=== PATIENT | female | born 2000 | race Caucasian/White ===

== ENCOUNTER 2023-10-03 17:14 | Emergency (ER) | payer OTHER, SELFPAY ==
--- NOTE | ~2023-10-03 | CT_ITS ---
EXAMINATION: CT ABDOMEN AND PELVIS WITH CONTRAST CLINICAL INFORMATION: Right lower quadrant pain. COMPARISON: None available. TECHNIQUE: Multidetector volumetric images were obtained from the superior aspect of the liver through the pubic symphysis following administration 85 mL of Omnipaque 350 intravenous contrast. Sagittal and coronal reformatted images were obtained on the technologist's workstation. Oral contrast: No This CT examination was performed using dose optimization techniques as appropriate, variously including the following: *Automated exposure control *Adjustment of mA and/or kV according to patient size (this includes techniques or standardized protocols for targeted exams where dose is matched to indication/reason for exam; i.e. extremities or head) *Use of iterative reconstruction technique DLP: 617 mGy-cm FINDINGS: LUNG BASES: There is a 2.5 x 1.6 cm simple fluid attenuating cyst in the right epicardial fat (3:6) favoring to represent a pericardial cyst. No focal consolidation or pleural effusion. Nonspecific small focus of fat stranding/soft tissue thickening in the lower anterior chest wall (3:11). LIVER, GALLBLADDER, AND BILIARY TREE: The liver is normal in size, shape, and attenuation. No focal hepatic lesion or biliary ductal dilatation is present. Cholecystectomy. PANCREAS: Unremarkable. SPLEEN: Unremarkable. ADRENAL GLANDS: Unremarkable. KIDNEYS AND URETERS: The kidneys are normal in size, shape, and attenuation. No hydronephrosis, hydroureter, or calculi seen. No perinephric stranding. BLADDER: Unremarkable. GASTROINTESTINAL TRACT: Nonspecific gastric distention with heterogeneous debris. The small bowel is nondilated. Normal appendix (3:57). Mild colonic diverticulosis without significant pericolonic fat stranding or free fluid. No evidence of bowel obstruction. Indeterminate partially calcified peritoneal nodule in the right upper quadrant with an adjacent 0.6 cm hazy nodule (3:39 and 3:40). ABDOMINAL WALL: No significant hernia is appreciated. LYMPH NODES: No lymphadenopathy. VASCULAR: Normal caliber abdominal aorta. PELVIC VISCERA: Unremarkable. OSSEOUS STRUCTURES: No acute or aggressive appearing osseous findings. CT/CT abdomen pelvis w IV con IMPRESSION: 1. Mild colonic diverticulosis but no evidence of acute diverticulitis. 2. Nonspecific gastric distention with heterogeneous debris, most likely related with postprandial state, correlate clinically. 3. Minimal soft tissue thickening/fat stranding in the right anterior chest wall that could represent a small contusion, correlate with physical examination. 4. Indeterminate partially calcified peritoneal nodule in the right upper quadrant, possibly sequela of an infectious/inflammatory or posttraumatic process, such as evolving fat necrosis. 5. Simple appearing right epicardial cyst.
[2023-10-03 17:18] VITALS: BP 111/73; PULSE 91; RESP 16; TEMP 36.5; O2SAT 98; BMI 32.9
--- NOTE | 2023-10-03 17:20 | ED.GENADULT ---
HPI - General Adult General Chief complaint: Abdominal Pain Stated complaint: ?APPEDEICITIS Time Seen by Provider: 10/03/23 20:18 Source: patient, family, RN notes reviewed and old records reviewed Mode of arrival: ambulatory Limitations: no limitations History of Present Illness HPI narrative: 23-year-old female presents for evaluation abdominal pain. Patient reports 1 week of intermittent right lower abdominal pain, currently has 7/10 pain. She reports intermittent nausea, diarrhea but denies vomiting. No blood in the urine Reports a history of cholecystectomy 2 months ago Also reports a he previous but no other abdominal surgeries Reports chills but no documented fevers No other complaints or concerns at this time Related Data Previous Rx's Medication Instructions Recorded ondansetron 4 mg disintegrating 4 mg PO Q8H PRN nausea and 10/03/23 tablet vomiting #20 tabs Allergies Allergy/AdvReac Type Severity Reaction Status Date / Time adhesive tape Allergy Rash Verified 10/03/23 17:17 nickel Allergy Rash Verified 10/03/23 17:17 Review of Systems Constitutional: Constitutional: Reports chills and Denies fever(s) ENT: Denies sore throat Cardiovascular: Cardiovascular: Denies chest pain and Denies dyspnea Respiratory: Respiratory: Denies cough and Denies dyspnea Gastrointestinal: Gastrointestinal: Reports abdominal pain, Reports constipation, Reports diarrhea, Reports nausea and Denies vomiting Musculoskeletal: Musculoskeletal: Denies back pain Integumentary/Breasts: Skin/Breast: Denies rash Physical Exam ED Vital Signs: Vital Signs - 24 hr 10/03/23 17:18 10/03/23 20:00 10/03/23 20:36 Temperature 97.7 F 98.5 F Pulse Rate 91 82 Respiratory Rate 16 16 Blood Pressure 111/73 117/68 Pulse Oximetry 98 97 Oxygen Delivery Method Room Air Room Air 10/03/23 21:21 10/04/23 00:00 Temperature 98.1 F Pulse Rate 80 98 Respiratory Rate 16 16 Blood Pressure 119/66 115/72 Pulse Oximetry 97 98 Oxygen Delivery Method Room Air Room Air BMI result Body Mass Index 32.9 Const General: healthy appearing, comfortable, no acute distress, alert and awake Nutritional Appearance: well nourished Orientation/consciousness: patient oriented x3 HENMT Head: Yes normocephalic and Yes atraumatic Eyes Eyelids: Yes eyelids normal Conjunctivae: conjunctivae normal Sclerae: sclerae normal Corneas: corneas normal Pupils: Equal, round and reactive pupils present EOM: EOMs intact bilaterally Neck Neck: Yes full ROM Resp Effort & Inspection: normal respiratory effort, able to speak in complete sentences and not labored Cardio Rate: regular rate Rhythm: regular rhythm GI Other: Patient has right lower quadrant tenderness, no rebound tenderness. Inspection: No distended Palpation (GI): Soft to palpation, not firm, Tenderness to palpation present (GI), Guarding due to palpation present (GI) in the RLQ and not rigid Skin General skin exam: elasticity normal Neuro General: patient oriented x3 Cranial nerves: Yes Equal, round and reactive pupils present and Yes Bilaterally intact EOM present Cognition (Neuro): normal cognition Extrem Other: Moving all extremities well without any obvious deformities Course Course Course Narrative: RME: 23 yold female presents to the ED for Right lower quadrant pain and daiarrhea for couple of days. Sent from urgent care for evaluatoin. labs ordered. Reevaluation(s) Reevaluation #1: Patient's workup was unremarkable, discussed the CT findings all incidental findings with the patient. She reports feeling better after treatment, will discharge her home with Lisa. 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 Time: 23:32 Medications Administered Discontinued Medications Generic Name Dose Route Start Last Admin Trade Name Judd PRN Reason Stop Dose Admin Sodium Chloride 1,000 mls @ 999 mls/hr 10/03/23 20:45 10/04/23 00:20 Ns IV 10/03/23 21:45 Infused .Q1H1M MONISHA Infusion Iohexol 100 ml 10/03/23 21:12 10/03/23 21:12 Iohexol 350 Mg/Ml 100 Ml Infus..Btl IV 10/03/23 21:13 85 ml ONCE ONE Administration Ketorolac Tromethamine 30 mg 10/03/23 20:45 10/03/23 21:19 Ketorolac Tromethamine 30 Mg/Ml Vial IVPUSH 10/03/23 20:46 30 mg ONCE ONE Administration Ondansetron HCl 4 mg 10/03/23 20:45 10/03/23 21:19 Ondansetron Hcl 4 Mg/2 Ml Vial IVPUSH 10/03/23 20:46 4 mg ONCE ONE Administration Medical Decision Making Medical Decision Making [facility] Narrative: 23-year-old female presents for evaluation of right lower quadrant pain intermittently over the last week. She has a history of cholecystectomy and . She is having constipation/diarrhea intermittently. Low suspicion for obstruction. She also has significant GI symptoms, so GI etiologies much more likely including acute appendicitis. Although I would expect the patient to have an elevated white count and possibly fever if she has had appendicitis open over the last week. Possible etiology also include ovarian cyst but less likely ovarian torsion. Differential Diagnosis Differential Diagnoses: The differential diagnosis associated with the presentation includes Acute appendicitis Constipation Colitis Diverticulitis Ovarian cyst Ovarian torsion less likely Lab Data [facility] Lab Attestation statement: I reviewed the patient's lab results. No leukocytosis. Very mild anemia with a normal hemoglobin hematocrit 36.0. No significant electrolyte abnormalities. The patient's chloride is just above normal at 111. Sodium potassium within normal limits. Normal renal function. The patient is not , UA is clear 10/03/23 18:20 10/03/23 18:20 Labs: Lab Results 10/03/23 10/03/23 Range/Units 18:20 18:21 WBC 9.0 (4.8-10.8) X10*3/uL RBC 3.90 L (4.20-5.50) X10*6/uL Hgb 12.0 (12.0-16.0) g/dl Hct 36.0 L (37.0-47.0) % MCV 92.3 (80.0-98.0) fL MCH 30.8 (27.0-33.0) pg MCHC 33.3 (31.0-35.0) g/dl RDW 12.9 (11.0-16.0) % Plt Count 269 (160-400) X10*3/uL MPV 10.2 (9.4-12.3) fL Immature Gran % (Auto) 0.2 (0.0-0.4) % Neut % (Auto) 67.5 (45-73) % Lymph % (Auto) 24.1 (20-40) % Creek % (Auto) 5.9 (2-11) % Eos % (Auto) 1.9 (0-4) % Baso % (Auto) 0.4 (0-2) % Lymph # (Auto) 2.2 (1.2-4.9) X10*3/uL [place] # (Auto) 0.5 (0.1-1.2) X10*3/uL Eos # (Auto) 0.2 (0.0-0.4) X10*3/uL Baso # (Auto) 0.0 (0.0-0.2) X10*3/uL Abs Immat Gran (auto) 0.02 (0.00-0.03) X10*3/uL Absolute Neuts (auto) 6.1 (2.0-8.3) x10*3/uL Absolute Nucleated RBC 0.000 (0.0-0.012) X10*3/uL Nucleated RBC % (auto) 0.0 (0.0-0.2) /100WBC PT 10.6 L (11.1-13.3) SEC INR 0.9 (0.9-1.1) APTT 32.5 (26.0-36.4) SEC Sodium 141 (135-145) mmol/L Potassium 4.4 (3.3-5.1) mmol/L Chloride 111 H (96-108) mmol/L Carbon Dioxide 21 L (22-29) mmol/L Anion Gap 13 (12-20) BUN 9 (9-16) mg/dL Creatinine 0.66 (0.5-1.4) mg/dL Estim Creat Clear Calc 127.2 Estimated GFR > 60 Random Glucose 94 (60-115) mg/dL Calcium 8.9 (8.4-10.2) mg/dL Total Bilirubin 0.2 (0.0-1.0) mg/dL AST 26 (5-31) U/L ALT 15 (0-31) U/L Alkaline Phosphatase 75 (39-117) U/L Total Protein 7.2 (6.5-8.0) g/dL Albumin 3.7 (3.5-5.0) g/dL Lipase 11 (8-78) U/L Beta HCG, Quant < 2 mIU/mL Urine Color Yellow Urine Appearance Clear Urine pH 6.5 (5.0-9.0) Ur Specific [place] 1.025 (1.005-1.025) Urine Protein Negative (Neg-Trace) mg/dL Urine Glucose (UA) Negative (Negative) mg/dL Urine Ketones Negative (Negative) mg/dL Urine Blood Negative (Negative) Urine Nitrite Negative (Negative) Ur Leukocyte Esterase Negative (Negative) Urine Test NEGATIVE (NEGATIVE) Influenza Type A (PCR) NEGATIVE (Negative) Influenza Type B (PCR) NEGATIVE (Negative) RSV RNA Qual (PCR) POSITIVE A (Negative) SARS-CoV-2 RNA (RT-PCR) NEGATIVE (Negative) Discharge Plan Discharge Clinical Impression: Abdominal pain, RSV infection Patient Disposition: Home, Self-Care Instructions: Abdominal Pain (ED) Additional Instructions: You may use ibuprofen/Tylenol as needed for pain. Use Zofran as needed for nausea/vomiting. Drink lots of fluids Follow-up with your primary doctor as well as her OBGYN Return for new or worsening symptoms Prescriptions: New ondansetron 4 mg tablet,disintegrating 4 mg PO Q8H PRN (Reason: nausea and vomiting) Qty: 20 0RF Interventions: ED Discharge Assessment Last Done: 10/04/23 00:22 Discharge Date/Time: 10/04/23 00:25
[2023-10-03 18:28] LABS: MANUAL DIFF FLAG NO
[2023-10-03 18:31] LABS: Appearance Urine Clear; Color Urine Yellow; Glucose Urine UA Negative (Negative); Leukocyte Esterase Urine Negative (Negative); Nitrite Urine Negative (Negative); PH 6.5 (5.0-9.0); Specific Gravity - Urine 1.025 (1.005-1.025); Urine Blood Negative (Negative); Urine Ketones Negative (Negative); Urine Protein Negative (Neg-Trace)
[2023-10-03 18:32] LABS: UPreg QC Valid YES; Urine Pregnancy NEGATIVE (NEGATIVE)
[2023-10-03 18:36] LABS: INTERNATIONAL NORM RATIO 0.9 (0.9-1.1); Prothrombin Time 10.6 SEC (11.1-13.3)
[2023-10-03 18:39] LABS: Partial Thromboplastin Time 32.5 SEC (26.0-36.4)
[2023-10-03 18:53] LABS: Alanine Aminotransferase 15 U/L (0-31); Albumin Level 3.7 g/dL (3.5-5.0); Alkaline Phosphatase 75 U/L (39-117); Anion Gap 13 (12-20); Aspartate Amino Transferase 26 U/L (5-31); Bilirubin Total 0.2 mg/dL (0.0-1.0); Blood Urea Nitrogen 9 mg/dL (9-16); Calcium 8.9 mg/dL (8.4-10.2); Carbon Dioxide 21 mmol/L (22-29); Chloride 111 mmol/L (96-108); Creatinine Clr Calc Pharmacy 127.2; Estimated Glomerular Filt Rate > 60; Glucose Random 94 mg/dL (60-115); HCG Quantitative < 2 mIU/mL; Lipase 11 U/L (8-78); Potassium 4.4 mmol/L (3.3-5.1); Sodium 141 mmol/L (135-145); Total Protein 7.2 g/dL (6.5-8.0)
[2023-10-03 18:55] LABS: Basophils Percent Auto 0.4 % (0-2); Eosinophils Absolute Auto 0.2 X10*3/uL (0.0-0.4); Eosinophils Percent Auto 1.9 % (0-4); Imm Gran Abs Auto 0.02 X10*3/uL (0.00-0.03); Imm Gran Pct Auto 0.2 % (0.0-0.4); Lymphocytes Absolute Auto 2.2 X10*3/uL (1.2-4.9); Lymphocytes Percent Auto 24.1 % (20-40); Mean Corpuscular HGB Conc 33.3 g/dl (31.0-35.0); Mean Corpuscular Hemoglobin 30.8 pg (27.0-33.0); Mean Corpuscular Volume 92.3 fL (80.0-98.0); Mean Platelet Volume 10.2 fL (9.4-12.3); Monocytes Absolute Auto 0.5 X10*3/uL (0.1-1.2); Monocytes Percent Auto 5.9 % (2-11); Neutrophils Absolute Auto 6.1 x10*3/uL (2.0-8.3); Neutrophils Percent Auto 67.5 % (45-73); Platelet Count 269 X10*3/uL (160-400); Red Cell Distribution Width 12.9 % (11.0-16.0)
[2023-10-03 19:04] LABS: Influenza A PCR NEGATIVE (Negative); Influenza B PCR NEGATIVE (Negative); Resp Syncy Virus RNA Qual PCR POSITIVE (Negative); SARS COV2 PCR INHOUSE NEGATIVE (Negative)
[2023-10-03 20:00] VITALS: BP 117/68; PULSE 82; RESP 16; O2SAT 97
[2023-10-03 20:36] VITALS: TEMP 36.9
[2023-10-03] MEDS: iohexoL 350 MG/ML 100 ML INFUS..BTL IV (21:12)
[2023-10-03] MEDS: Ketorolac Tromethamine 30 MG/ML VIAL IVPUSH (21:19)
[2023-10-03] MEDS: ondansetron HCL 4 MG/2 ML VIAL IVPUSH (21:19)
[2023-10-03] MEDS: 0.9 % Sodium Chloride 1,000 ML 999 ML IV (21:20)
[2023-10-03 21:21] VITALS: BP 119/66; PULSE 80; RESP 16; O2SAT 97
[2023-10-04] VITALS: BP 115/72; PULSE 98; RESP 16; TEMP 36.7; O2SAT 98
== END 2023-10-04 00:25 | disposition home or self-care (01) ==
PROVIDERS: Physician Assistant; Emergency Provider Internal Medicine
DX: J22 Unspecified acute lower respiratory infection (principal); R10.31 Right lower quadrant pain; R19.7 Diarrhea, unspecified; K59.00 Constipation, unspecified; Z20.822 Contact with and (suspected) exposure to COVID-19; Z20.828 Contact with and (suspected) exposure to other viral communicable diseases
CPT/HCPCS: 0241U; 36415; 74177; 80053; 81003; 81025; 83690; 84702; 85025; 85610; 85730; 96361; 96374; 96375; 99285; J1885; J2405; Q9967

== ENCOUNTER 2023-10-04 13:20 | Emergency (ER) | payer OTHER, SELFPAY ==
[2023-10-04 13:27] VITALS: BP 136/82; PULSE 84; O2SAT 96
--- NOTE | 2023-10-04 13:32 | ED_ITS ---
HPI - General Adult General Chief complaint: Abdominal Pain Stated complaint: ABD PAIN X1 WK PER EMS Source: patient Mode of arrival: ambulatory Limitations: no limitations History of Present Illness HPI narrative: Patient is a 23 year old assigned female at with no reported medical history presenting to the emergency department today with right lower quadrant abdominal pain. Patient states that she was just seen for this same pain and told it was a virus but she does not believe that as her pain is getting worse. Patient denies any dizziness, lightheadedness, vomiting, fever, chills, blurry vision, double vision, loss of vision, chest pain, difficulty breathing, shortness of breath, back pain, night sweats, pain with urination, increased urinary frequency, increased urinary urgency, blood in her urine or stool, syncope or a near syncopal episode, recent trauma or falls, bowel incontinence, bladder incontinence, bowel retention, bladder retention, or any other complaints at this time. Onset (ago): week(s) (1) Location: abdomen Radiation: non-radiation Severity: mild Severity scale (1-10): 4 Quality: aching Pain Consistency: constant Relieving factors: none Exacerbating factors: none Associated symptoms: nausea/vomiting Treatments prior to arrival: none Related Data Previous Rx's Medication Instructions Recorded ondansetron 4 mg disintegrating 4 mg PO Q8H PRN nausea and 10/03/23 tablet vomiting #20 tabs Allergies Allergy/AdvReac Type Severity Reaction Status Date / Time adhesive tape Allergy Rash Verified 10/03/23 17:17 nickel Allergy Rash Verified 10/03/23 17:17 Review of Systems Constitutional: Constitutional: Reports no additional constitutional complaints, Denies chills, Denies fever(s) and Denies night sweats Eyes: Eyes: Reports no additional eye complaints, Denies blurry vision, Denies change in vision, Denies diplopia, Denies eye discharge, Denies loss of vision and Denies eye pain ENT: Denies dizziness Cardiovascular: Cardiovascular: Reports no additional cardiovascular complaints, Denies chest pain, Denies lightheadedness, Denies Loss of Consciousness and Denies dyspnea Respiratory: Respiratory: Reports no additional respiratory complaints and Denies dyspnea Gastrointestinal: Gastrointestinal: Reports no additional gastrointestinal complaints, Reports abdominal pain, Denies melena, Denies hematochezia, Denies change in bowel habits, Denies change in stool character and Reports nausea Genitourinary: Genitourinary: Denies hematuria, Denies urinary frequency, Denies dysuria, Denies urinary incontinence, Denies urinary hesitancy and Denies urinary urgency Musculoskeletal: Musculoskeletal: Reports no additional musculoskeletal complaints, Denies numbness and Denies tingling Neurologic: Denies dizziness, Denies loss of vision, Denies numbness and Denies tingling Psychiatric: Psychiatric: Reports no additional psychiatric complaints Endocrine: Endocrine: Reports no additional endocrine complaints Hematologic/Lymphatic: Hematologic/Lymphatic: Reports no additional hematologic/lymphatic complaints Allergic/Immunologic: Allergic/Immunologic: Reports no additional allergic/immunologic complaints [facility] Past Medical History Attestation statement: The following information was validated with the patient. Source: old records reviewed and nursing notes reviewed Social History Social History Advance Directives: No Physical Exam ED Vital Signs: Vital Signs - 24 hr 10/04/23 13:33 Temperature 98.5 F Pulse Rate 81 Respiratory Rate 16 Blood Pressure 120/69 Pulse Oximetry 98 Oxygen Delivery Method Room Air BMI result Body Mass Index 34.0 Const General: cooperative, no acute distress, alert and awake Nutritional Appearance: well nourished Orientation/consciousness: patient oriented x3 Limitations: no limitations HENMT Head: Yes normal to inspection and Yes atraumatic Ears: hearing grossly normal bilaterally and external ears normal General nose exam: Normal external nose present, no nasal discharge noted and no epistaxis Face and sinus: Yes normal facial exam, No abrasion and No laceration Mouth: Normal oral and palatal mucosa present, no drooling and no muffled voice Eyes General: appearance normal, both eyes and all related structures Periorbital: periorbital findings normal Eyelids: Yes eyelids normal Conjunctivae: conjunctivae normal Pupils: Equal, round and reactive pupils present EOM: EOMs intact bilaterally Neck Neck: Yes normal visual inspection, Yes full ROM and Yes no lymphadenopathy Chest Chest palpation & inspection: normal inspection of the chest Resp Effort & Inspection: normal respiratory effort and able to speak in complete sentences GI Inspection: Yes normal to inspection Neuro General: patient oriented x3 and moves all extremities Cranial nerves: Yes Equal, round and reactive pupils present Cognition (Neuro): normal cognition Motor exam (neuro): 5/5 motor strength present throughout Sensory Exam: Normal double simultaneous stimulation for sensation Coordination: [id number] test normal Extrem General: Yes normal to inspection, Yes full ROM and Yes capillary refill normal Psych Appearance: grossly normal Mental Status: mental status grossly normal Affect: normal affect Attitude: cooperative Thought process: Normal thought process present Thought content: Normal thought content present Insight: Good insight present (Psych) Course Course Course Narrative: RME performed by Maru Peace PA-C. Patient is a 23 year old assigned female at presenting to the emergency department with persistent RLQ abdominal pain. Patient was seen here on 10/03/2023 and had labs, UA, and imaging done. Will repeat basic labs + UA. Labs ordered. Patient placed back in the waiting room pending room availability and results. Medical Decision Making Medical Decision Making MDM Narrative: Patient is a 23 year old assigned female at with no reported medical history presenting to the emergency department today with abdominal pain. Patient's limited physical exam performed in triage was unremarkable. Patient left before any blood work was obtained. Patient left the department without completing treatment. Patient left the department before myself or any of the other emergency department clinicians could review / explain physical exam findings, need or lack there of for additional testing or imaging, treatment options, or a treatment plan. Differential Diagnosis Differential Diagnoses: The differential diagnosis associated with the presentation includes Abdominal pain Admission/Observation Consideration of admission/observation: Escalation of care including admission/observation considered Patient left the department before need for admission could be determined. Discharge Plan Discharge Clinical Impression: Abdominal pain Patient Disposition: Left W/O Completing Treatment Prescriptions: No Action ondansetron 4 mg tablet,disintegrating 4 mg PO Q8H PRN (Reason: nausea and vomiting) Qty: 20 0RF Discharge Date/Time: 10/04/23 19:00
[2023-10-04 13:33] VITALS: BP 120/69; PULSE 81; RESP 16; TEMP 36.9; O2SAT 98; BMI 34.0
== END 2023-10-04 19:00 | disposition left against medical advice (07) ==
PROVIDERS: Emergency Provider Emergency Medicine
DX: R10.9 Unspecified abdominal pain (principal)
CPT/HCPCS: 99281

== ENCOUNTER → 2025-03-19 13:10 | Outpatient (BNVA) | payer OTHER, SELFPAY | PROVIDERS: Visit Provider Physician Assistant Surgical ==

== ENCOUNTER 2025-04-04 08:22 | Outpatient (AMB) | payer OTHER, SELFPAY ==
--- OUTSIDE RECORDS SUMMARY | 2025-04-04 08:27 | XMS_ITS | Clinical Summary ---
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 Name Role Phone Physician, No Pcp Primary Care Provider Unavaila ble Allergies Active Allergy Reactions Criticality Noted Date Comments Adhesive 03/04/2021 Other Reaction(s): Rash/Dermatitis Nickel Rash Low 02/10/2018 Other Reaction(s): Rash/Dermatitis Contact allergy to nickel - scaly rash Other 10/10/2021 Full Spectrum Extract Medications topiramate (TOPAMAX) 50 mg tablet TAKE 1 TABLET BY MOUTH TWICE A DAY FOR 30 DAYS 4 Active hyoscyamine (ANASPAZ,LEVSIN) 0.125 mg tablet TAKE 1 TABLET BY MOUTH FOUR TIMES A DAY NEEDED FOR SPASM 3 Active ibuprofen (ADVIL,MOTRIN) 800 mg tablet TAKE 1 TABLET EVERY 8 HOURS NEEDED FOR PAIN 4 Active desogestreL-ethinyl estradioL (APRI,ENSKYCE,EMOQU ETTE,ISIBLOOM,JULEB ER,KALLIGA) 0.15-0.03 mg per tablet Take 1 tablet by mouth 1 (one) time each day. 84 tablet 3 5 12/05/19 26 Active ondansetron ODT (ZOFRAN-ODT) 4 mg disintegrating tablet Let 1 tablet dissolve under the tongue three times daily as needed for nausea or vomiting. 30 tablet 5 Active Active Problems Problem Noted Date Diagnosed Date Class 2 obesity 12/06/2024 Anxiety attack 02/11/2021 Intractable vomiting 02/11/2021 Migraine without aura and wi thout status migrainosus, not intractable 06/07/2019 Disturbance in sleep behavior 03/29/2018 Overview (09/21/2024): 06/2019 Home Sleep Study did not reveal sleep apnea or nocturnal hypoxia. Migraine 03/21/2018 Overview (09/21/2024): 03/23/17 topiramate 100 mg @ HS and 50 mg QD. Sumatriptan 50 mg Irregular periods 02/10/2018 Overview (09/21/2024): 03/18: treated with micronor Constipation 08/15/2012 Overview (09/21/2024): Seen by Dr. Anne miralamisty 1/2 capful daily, wean to 1/4 capful after two days of loose stools Normal kub 07/15/12 03/24/18: seen at [facility] ER for severe constipation, given mag citrate Last Assessment & Plan: C/w miralax. F/u with Dr. Anne Lactose intolerance 07/15/2012 Overview (09/21/2024): Last Assessment & Plan: Controlled with lactaid pills Learning disabilities 12/18/2011 Overview (09/21/2024): Has iep Diagnosis unknown 05/22/2009 Overview (09/21/2024): BMI (body mass index), pediatric, 95-99% for age Elevated serum cholesterol 01/18/2009 Overview (09/21/2024): 10/12 cholesterol 173, triglycerides 124, hdl 37 low. LDL 111 high Encounters Date Type Department Care Team Description 02/12/2025 9:38 PM EDT - 02/13/2025 4:43 AM EDT Emergency [facility] [address] [place] [phone] Discharge Disposition: Home or Self Care 02/07/2025 5:22 AM EDT - 02/07/2025 9:12 AM EDT Emergency [facility] [address] [place] [address] Right flank pain (Primary Dx); Kidney stone Discharge Disposition: Home or Self Care from Last 3 Months Immunizations Name Administration Dates Next Due DTaP (Infanrix) 6wks to less than 7yo ,11/24/2002,2001,10/21,2001 [id number] (Pentacel) 2mo to less than 5yo 12/19/2012,08/22/2002,2001,10/21,2001 H1N1 Inj Preservative Free 01/07/2010,09/14/2009 HPV, Quadrivalent 11/23/2014,11/30/2013,12/19/19 13 Hepatitis B Pediatric (Enger ix B; Recombivax HB) to less than 20 yo 03/17/2002,2001,2001 IPV Inactivated polio (Ipol) 6wks and older 05/09/2005,05/29/2002,2001,08/17 Influenza Quadravalent, MDCK , 0.5ml, preservative free (Flucelvax) 6mo and older 01/04/2024,07/20/2018 Influenza trivalent, 0.5mL, preservative free (Fluarix; FluLaval; Fluzone) ages 6mo and older (Afluria) 3 years and older 08/09/2019,09/27/2017,08/19/2015,11/23,08/23/2013,11/22/2012,07/20/2011 ,07/25/2010,08/02/2009,09/03/2008,10/01,09/10/2006,09/13/2004, 4 MMR, measles mumps and rubel la Live (Priorix; M-M-R II) 12mo and older 05/19/2005,08/22/2002 Meningococcal MCV4P 03/29/2018,12/19/2012 Moderna SARS-CoV-2 COVID-19, mRNA, LNP-S, preservative free 03/24/2021,02/24/2021 Pneumococcal Conjugate Vacci ne, 7 Valent 06/11/2003,2001,2001,08/17 Tdap Tetanus diptheria acell ular pertussis (Boostrix; Adacel) 7yo and older 01/04/2024,12/19/2012 Varicella live (Varivax) 12m o and older 01/07/2010,05/19/2002 Surgical History Surgery Date Site/Laterality Comments TONSILLECTOMY 11/12/2011 PROCEDURE: HISTORICAL TONSILLECTOMY; COMMENT: Dr. Aguilar SECTION 05/05/2022 PROCEDURE: HISTORICAL DELIVERY CHOLECYSTECTOMY PROCEDURE: HISTORICAL CHOLECYSTECTOMY Medical History Medical History Date Comments Asthma DX:Asthma; COMME NT: as a baby, no sx since age 4 Seasonal allergies DX:Seasonal a llergies Eczema DX:Eczema Precocious puberty DX:Precocious puberty; COMMENT: sent to Endocrine BMI (body mass index), pedia tric, 95-99% for age 705/22/2009 DX:BMI (body mass index), pe diatric, 95-99% for age; COMMENT: Veronica Anguiano MD 08/15/[address] Anne's 1,2,3, power of Second Sight program 03/23/18 reviewed dietary modifications and activity, strategies for use at home -groceries, snacking, shaun; prep increased activity Constipation 08/15/2012 DX:Constipation; COMMENT: Seen by Dr. Anne miralax 1/2 capful daily, wean to 1/4 capful after two days of loose stools Normal kub 07/15/12 Elevated serum cholesterol 01/18/2009 DX:El evated serum cholesterol; COMMENT: 10/12 cholesterol 173, triglycerides 124, hdl 37 low. LDL 111 high Irregular periods 02/10/2018 DX:Irregular p eriods Lactose intolerance 07/15/2012 DX:Lactose i ntolerance Learning disabilities 12/18/2011 DX:Learnin g disabilities; COMMENT: Has IEP ; extra help in reading, math Migraine 03/21/2018 DX:Migraine; COM MENT: 03/23/17 topiramate 100 mg @ HS and 50 mg QD. Sumatriptan 50 mg Overactive bladder 07/31/2011 DX:Overactive bladder; COMMENT: Nl bladder ultrasound. Family no showed for appt with urology. Sx improved with ditropan History of febrile seizure DX:Hi story of febrile seizure; COMMENT: 4 in life, Every November. Not since age 5 GERD (gastroesophageal reflux disease) 03/23/2018 DX:GERD (gastroesophageal reflux disease); COMMENT: 07/13/[address] 20 mg Temporomandibular joint disorder (TMJ) 03/23/2018 DX:Temporomandibular joint disorder (TMJ); COMMENT: 09/27/17 - cyclobenzaprine 5 mg tab, 1-2 tabs Q PM PRN Kidney stone Family History Medical History Relation Name Comments Other: Kidney Disease Aunt 1 Maternal Other: brain aneursym Aunt 2 patern al aunt , age 21. Brain Aneurysm Father's side Diabetes Father's side paternal aunt Heart attack Maternal Grandfather Depression Mother Obesity Breast cancer Mother's side maternal great GM MGGM Eczema Mother's side maternal great GM cousin Obesity Mother's side maternal great GM Other: Anxiety Mother's side maternal great GM M Aunt Brain Aneurysm Other paternal aunt Heart attack Paternal Grandfather Diabete s, Sleep Apnea Brain Aneurysm Paternal Grandmother Other: Anxiety Paternal Grandmother Colon cancer Neg Hx Ovarian cancer Neg Hx Pancreatic cancer Neg Hx Uterine cancer Neg Hx Relation Name Status Comments Aunt 1 Maternal (Age 25) brain aneu rysm or AVM? (father's sister) Aunt 2 Alive Father Alive hypochondriac Father's side Maternal Grandfather Alive anxiety , DDD-back Maternal Grandmother Alive RSD Mother Alive healthy Mother's side maternal great GM Other paternal aunt kidney disease Paternal Grandfather Alive sleep a pnea Paternal Grandmother Alive healthy Social History Tobacco Use Types Packs/Day Years Used Date Smoking Tobacco: Never Smokeless Tobacco: Never Alcohol Use Standard Drinks/Week Comments Not Currently 0 (1 standard drink = 0.6 oz pur e alcohol) Comments No Sex and Gender Information Value Date Recorded Sex Assigned at Female 11/04/2024 7:45 PM EST Legal Sex Female 4:51 AM EST Gender Identity Female 11/04/2024 7:45 PM EST Sexual Orientation Straight 11/04/2024 7: 45 PM EST Obstetrics History Para Term AB IAB SAB Ectopic Multiple Livin g Live Births 1 1 1 1 1 Date Outcome GA Total Labor Labor/2nd/3rd Weight Sex Type Anes PTL Sherly A1 A5 Name Clin 022 Term 38w 0d 2466 g (87 oz) F Living Complications: distress affecting management of mother Delivery Location:[facility] Last Filed Vital Signs Vital Sign Reading Time Taken Comments Blood Pressure 134/86 02/12/2025 9:44 PM EDT Pulse 80 02/12/2025 9:44 PM EDT Temperature 36.7 ??C (98.1 ??F) 02/12/2025 9:44 PM ED T Respiratory Rate 18 02/12/2025 9:44 PM EDT Oxygen Saturation 97% 02/12/2025 9:44 PM EDT Inhaled Oxygen Concentration - - Weight 102 kg (225 lb) 02/12/2025 9:44 PM EDT Height 154.9 cm (5' 1 ) 02/12/2025 9:44 PM EDT Body Mass Index 42.51 02/12/2025 9:44 PM EDT Plan of Treatment Health Maintenance Due Date Last Done Comments Meningococcal B Vaccine (1 of 2 - Standard) 2017 Social Influencers of Health Screening 10/10/2022 COVID-19 Vaccine ( - season) 2024 03/24/2021, 02/24/2021 Influenza Vaccine (Season Ended) 2025 01/04/2024, 07/22/2023, 08/08/2021, Additional history exists Gonorrhea/Chlamydia Screening 08/18/2025 08/18/2024 Depression Screening 03/15/2026 03/15/2025, 03/03/20 Cervical Cancer Screening: Pap Smear 08/25/2026 08/25/2023, 08/25/2023 Cholesterol Screening (Lipid Panel) 01/31/2029 02/01/2024 DTaP,Tdap,and Td Vaccines (10 - Td or Tdap) 01/03/2034 01/04/2024, 05/07/2022, 12/19/2012, Additional history exists Hepatitis B Vaccines Completed 03/17/2002, 2001, 2001 Pneumococcal Vaccine: Pediatrics (0 to 5 Years) and At-Risk Patients (6 to 64 Years) Completed 06/11/2003, 2001, 2001, Additional history exists HIB Vaccines Completed 12/19/2012, 08/02, 08/22/2002, Additional history exists IPV Vaccines Completed 12/19/2012, 07/2005, 08/22/2002, Additional history exists HPV Vaccines Completed 11/23/2014, 11/03, 12/19/2012 Meningococcal ACWY Vaccine Completed 03/29/2018, Hepatitis C Screening Completed 04/03/2020 HIV Screening Completed 01/28/2021 MMR Vaccines Completed 05/07/2022, 05/01, 08/22/2002 Varicella Vaccines Completed 05/07/2022, 0 01/07/2010, 05/19/2002 Hepatitis A Vaccines Aged Out No long er eligible based on patient's age to complete this topic RSV Immunization Patients Under 20 months Aged Out No longer eligible based on patient's age to complete this topic Procedures Procedure Name Priority Date/Time Associated Diagnosis Comments NAVARRO URINE CULTURE TUBE STAT 02/12/2025 9:56 PM EDT URINALYSIS WITH REFLEX MICROSCOPIC AND CULTURE STAT 02/12/2025 9:56 PM EDT CBC WITH AUTO DIFFERENTIAL STAT 02/12/2025 9:56 PM EDT URINALYSIS WITH REFLEX MICROSCOPIC AND CULTURE STAT 02/12/2025 9:56 PM EDT COMPREHENSIVE METABOLIC PANEL STAT 02/12/2025 9:56 PM EDT CBC AND DIFFERENTIAL STAT 02/12/2025 9:56 PM EDT CULTURE URINE STAT 02/12/2025 9:[address] ABDOMEN PELVIS WO CONTRAST STAT 02/07/2025 6:33 AM EDT NAVARRO URINE CULTURE TUBE STAT 02/07/2025 5:20 AM EDT URINALYSIS WITH REFLEX MICROSCOPIC AND CULTURE STAT 02/07/2025 5:20 AM EDT URINALYSIS WITH REFLEX MICROSCOPIC AND CULTURE STAT 02/07/2025 5:20 AM EDT CULTURE URINE STAT 02/07/2025 5:20 AM EDT POC , URINE DIAGNOSTIC STAT 02/07/2025 5:19 AM EDT CBC WITH AUTO DIFFERENTIAL STAT 02/07/2025 5:14 AM EDT LIPASE STAT 02/07/2025 5:14 AM EDT COMPREHENSIVE METABOLIC PANEL STAT 02/07/2025 5:14 AM EDT CBC AND DIFFERENTIAL STAT 02/07/2025 5:14 AM EDT GONORRHEA/CHLAMYDIA SCRREENING Routine 08/18/2024 HM DEPRESSION SCREENING Routine 03/03/2024 LIPID PANEL Routine 02/01/2024 HM HPV Routine 08/25/2023 HIV SCREENING Routine 01/28/2021 HEPATITIS C SCREENING Routine 04/03/2020 from Last 3 Months or Most Recently Relevant to Health Maintenance Results * (ABNORMAL) Urinalysis with reflex microscopic and culture (02/12/2025 9:56 PM EDT) Only the most recent of2 resultswithin the time period is included. Specific [place] Urine 1.025 1.003 - 1.030 LAB URINALYSIS - AUTOMATED METHOD 02/12/2025 10:35 PM EDT [facility] pH, Urine 7.0 5.0 - 8.0 pH LAB URINALYSIS - AUTOMATED METHOD 02/12/2025 10:35 PM [facility] Leukocytes, Urine Trace(A) Negative LAB URINALYSIS - AUTOMATED METHOD 02/12/2025 10:35 PM [facility] Nitrite, Urine Negative Negative LAB URINALYSIS - AUTOMATED METHOD 02/12/2025 10:35 PM [facility] Protein, Urine Trace <=Trace mg/dL LAB URINALYSIS - AUTOMATED METHOD 02/12/2025 10:35 PM [facility] Glucose, Urine Negative Negative mg/dL LAB URINALYSIS - AUTOMATED METHOD 02/12/2025 10:35 PM [facility] Ketones, Urine Trace(A) Negative mg/dL LAB URINALYSIS - AUTOMATED METHOD 02/12/2025 10:35 PM [facility] Urobilinogen , Urine 1.0 0.2 - 1.0 mg/dL LAB URINALYSIS - AUTOMATED METHOD 02/12/2025 10:35 PM [facility] Bilirubin, Urine Negative Negative LAB URINALYSIS - AUTOMATED METHOD 02/12/2025 10:35 PM [facility] Blood, Urine Negative Negative LAB URINALYSIS - AUTOMATED METHOD 02/12/2025 10:35 PM [facility] RBC, Urine 0 0 - 4 /HPF LAB URINALYSIS - AUTOMATED METHOD 02/12/2025 10:35 PM [facility] WBC, Urine 4 0 - 4 /HPF LAB URINALYSIS - AUTOMATED METHOD 02/12/2025 10:35 PM [facility] Squamous Epithelial, Urine >100(H) 0 - 60 /LPF LAB URINALYSIS - AUTOMATED METHOD 02/12/2025 10:35 PM [facility] Bacteria, Urine Moderate(A) Negative /HPF LAB URINALYSIS - AUTOMATED METHOD 02/12/2025 10:35 PM [facility] Hyaline Casts, Urine 1 0 - 3 /LPF LAB URINALYSIS - AUTOMATED METHOD 02/12/2025 10:35 PM EDT [facility] Urine Urine specimen obtained by clean catch procedure / Unknown Non-blood Collection / Unknown 02/12/2025 9:56 PM EDT 02/12/2025 10:07 PM EDT us Michael Uribe MD LAB URINE ORDERABLES Final Resu lt Performing Organization Address City/[facility]/ZIP Co de Phone Number [facility] [address] [place] [address], [place] [phone] * Navarro urine culture tube (02/12/2025 9:56 PM EDT) Only the most recent of2 resultswithin the time period is included. Extra Tube Hold for add-ons. 02/13/2025 12:02 AM EDT [facility] Comment:Auto resulted. Urine Urine specimen obtained by clean catch procedure / Unknown Non-blood Collection / Unknown 02/12/2025 9:56 PM EDT 02/12/2025 10:07 PM EDT us Michael Uribe MD LAB URINE ORDERABLES Final Resu lt Performing Organization Address [facility]/ZIP Co de Phone Number [facility] [address] [place] [address], [place] [phone] * CBC auto differential (02/12/2025 9:56 PM EDT) Only the most recent of2 resultswithin the time period is included. WBC 8.6 4.8 - 10.8 K/[facility] LAB HEMETOLOGY METHOD 02/12/2025 10:22 PM EDT [facility] RBC 4.20 3.80 - 4.80 M/[facility] LAB HEMETOLOGY METHOD 02/12/2025 10:22 PM EDT [facility] Hemoglobin 12.5 11.5 - 16.0 g/dL LAB HEMETOLOGY METHOD 02/12/2025 10:22 PM EDT [facility] Hematocrit 38.0 35.0 - 47.0 % LAB HEMETOLOGY METHOD [facility]12[facility]25 [facility] MCV 90.7 79.0 - 98.0 FL LAB HEMETOLOGY METHOD 02/12/2025 10:[facility] MCH 29.8 27.0 - 32.0 pcg LAB HEMETOLOGY METHOD 02/12/2025 10:22 PM [facility] MCHC 32.9 32.0 - 37.0 g/dL LAB HEMETOLOGY METHOD 02/12/2025 10:22 PM [facility] RDW 12.4 11.0 - 15.0 % LAB HEMETOLOGY METHOD 02/12[facility]2025 10:[facility] Platelets 281 130 - 400 K/mcL LAB HEMETOLOGY METHOD 02/12/2025 10:22 PM [facility] MPV 10.8 7.0 - 11.0 FL LAB HEMETOLOGY METHOD 02/12/2025 10:22 PM [facility] NRBC 0.0 <1.0 % LAB HEMETOLOGY METHOD 02/12/2025 10:[facility] NRBC Absolute 0.00 <0.10 K/mcL LAB HEMETOLOGY METHOD 02/12/2025 10:22 PM [facility] Neutrophils Relative 53.0 % LAB HEMETOLOGY METHOD 02/12/2025 10:22 PM [facility] Lymphocytes Relative 35.3 % LAB HEMETOLOGY METHOD 02/12/2025 10:22 PM [facility] Monocytes Relative 7.4 % LAB HEMETOLOGY METHOD 02/12/2025 10:22 PM EDT [facility] Eosinophils Relative 3.6 % LAB HEMETOLOGY METHOD 02/12/2025 10:22 PM EDT [facility] Basophils Relative 0.6 % LAB HEMETOLOGY METHOD 02/12/2025 10:22 PM [facility] Immature Granulocytes Relative 0.1 % LAB HEMETOLOGY METHOD 02/12/2025 10:22 PM EDT [facility] Neutrophils Absolute 4.54 1.50 - 7.00 K/mcL LAB HEMETOLOGY METHOD 02/12/2025 10:22 PM EDT [facility] Lymphocytes Absolute 3.02 1.00 - 5.00 K/mcL LAB HEMETOLOGY METHOD 02/12/2025 10:[facility] Monocytes Absolute 0.63 0.20 - 1.00 K/mcL LAB HEMETOLOGY METHOD 02/12/2025 10:22 PM EDT [facility] Eosinophils Absolute 0.31 0.00 - 0.50 K/mcL LAB HEMETOLOGY METHOD 02/12/2025 10:22 PM EDT [facility] Basophils Absolute 0.05 0.00 - 0.20 K/mcL LAB HEMETOLOGY METHOD 02/12/2025 10:22 PM T [facility] Immature Granulocytes Absolute 0.01 0.00 - 0.03 K/mcL LAB HEMETOLOGY METHOD 02/12/2025 10:22 PM EDT [facility] Blood Venous blood specimen / Unknown Venipuncture / Unknown 02/12/2025 9:56 PM EDT 02/12/2025 10:08 PM EDT us Michael Uribe MD LAB BLOOD ORDERABLES Final Resu lt [facility] [address] [place] [address], * Culture urine (02/12/2025 9:56 PM EDT) Only the most recent of2 resultswithin the time period is included. Pathologist [facility] [place] Culture, Urine <10,000 cfu/ml, insignificant count, no further workup. 02/14/2025 10:41 AM EDT [facility] Urine Urine specimen obtained by clean catch procedure / Unknown Non-blood Collection / Unknown 02/12/2025 9:56 PM EDT 02/12/2025 10:35 PM EDT us Michael Uribe MD LAB MICROBIOLOGY - GENERAL LARISSA AVILA Final Result [facility] [address] [place] [address], [place] [phone] * (ABNORMAL) Comprehensive metabolic panel (02/12/2025 9:56 PM EDT) Only the most recent of2 resultswithin the time period is included. [facility] Sodium 139 133 - 145 mmol/L LAB CHEMISTRY METHOD 02/12/2025 10:45 PM [facility] Potassium 4.1 3.5 - 5.5 mmol/L LAB CHEMISTRY METHOD 02/12/2025 10:45 PM [facility] Chloride 108 96 - 110 mmol/L LAB CHEMISTRY METHOD 02/12/2025 10:45 PM [facility] CO2 27 21 - 32 mmol/L LAB CHEMISTRY METHOD 02/12/2025 10:45 PM [facility] Anion Gap 4 3 - 11 LAB CHEMISTRY METHOD 02/12/2025 10:45 PM [facility] Glucose 94 70 - 100 mg/dL LAB CHEMISTRY METHOD 02/12/2025 10:45 PM [facility] BUN 10 5 - 25 mg/dL LAB CHEMISTRY METHOD 02/12/2025 10:45 PM [facility] Creatinine 0.71 0.50 - 1.10 mg/dL LAB CHEMISTRY METHOD 02/12/2025 10:45 PM T [facility] eGFR 123 >=60 mL/min/1. 73m2 LAB CHEMISTRY METHOD 02/12/2025 10:45 PM [facility] Comment:Calculation based on the??Chronic Kidney Disease Epidemiology Collaboration (CKD-EPI) equation refit??without adjustment for race. BUN/Creatinine Ratio 14.1 LAB CHEMISTRY METHOD 02/12/2025 10:45 PM EDT [facility] Calcium 9.7 8.5 - 10.5 mg/dL LAB CHEMISTRY METHOD 02/12/2025 10:45 PM [facility] AST (SGOT) 37 10 - 42 unit/L LAB CHEMISTRY METHOD 02/12/2025 10:45 PM [facility] ALT (SGPT) 59 10 - 60 unit/L LAB CHEMISTRY METHOD 02/12/2025 10:45 PM [facility] Alkaline Phosphatase 122(H) 42 - 121 unit/L LAB CHEMISTRY METHOD 02/12/2025 10:45 PM [facility] Total Protein 7.4 6.0 - 8.0 g/dL LAB CHEMISTRY METHOD 02/12/2025 10:45 PM [facility] Albumin 3.7 3.2 - 5.0 g/dL LAB CHEMISTRY METHOD 02/12/2025 10:45 PM [facility] Total Bilirubin 0.4 0.0 - 1.4 mg/dL LAB CHEMISTRY METHOD 02/12/2025 10:45 PM [facility] Blood Venous blood specimen / Unknown Venipuncture / Unknown 02/12/2025 9:56 PM EDT 02/12/2025 10:08 PM EDT us Michael Uribe MD LAB BLOOD ORDERABLES Final Resu lt [facility] [address] [place] [address], * CT Abdomen Pelvis wo Contrast (02/07/2025 6:33 AM EDT) Anatomical Region Laterality Modality Body Computed Tomogra phy 02/07/2025 8:15 AM EDT Impressions 02/07/2025 8:25 AM EDT 2 mm proximal right ureteral calculus with mild right hydronephrosis. 4 cm simple left ovarian cyst. -------- FINAL REPORT -------- Dictated By: KANU ROBERTS Dictated Date: 02/07/2025 08:15 ET Assigned Physician: KANU ROBERTS Reviewed and Electronically Signed By: KANU ROBERTS Signed Date: 02/07/2025 08:25 ET Workstation ID: [id number] Transcribed By: Self Edit Transcribed Date: 02/07/2025 08:15 ET Narrative 02/07/2025 8:25 AM EDT PROCEDURE: CT abdomen/pelvis INDICATION: Pain TECHNIQUE: CT of the abdomen and pelvis without contrast. Multiplanar reformats. The examination was performed utilizing dose reduction techniques. ??Total DLP 1350 COMPARISON: ??08/03/2020 FINDINGS: ?? LOWER THORAX: Bibasilar atelectasis HEPATOBILIARY: No focal liver lesions. ??Hepatic steatosis. ??Cholecystectomy. ??No biliary duct dilatation. SPLEEN: No splenomegaly. PANCREAS: No focal mass or ductal dilatation. ADRENALS: No nodules. KIDNEYS/URETERS: 2 mm proximal right ureteral calculus with mild right hydronephrosis. ??No left hydronephrosis PELVIC ORGANS/BLADDER: Bladder is decompressed. ??4 cm simple left ovarian cyst. ??Right adnexal structures are normal. ??Uterus is normal. PERITONEUM / RETROPERITONEUM: No ascites or free air. No retroperitoneal lymphadenopathy. VESSELS: Abdominal aorta is normal in size. GI TRACT: No bowel obstruction or wall thickening. Normal appendix. BONES AND SOFT TISSUES: Bones and soft tissues are within normal limits Procedure Note Kanu Roberts MD - 02/07/2025 PROCEDURE: CT abdomen/pelvis INDICATION: Pain TECHNIQUE: CT of the abdomen and pelvis without contrast. Multiplanarreformats. The examination was performed utilizing dose reductiontechniques. Total DLP 1350 COMPARISON: 08/03/2020 FINDINGS: LOWER THORAX: Bibasilar atelectasis HEPATOBILIARY: No focal liver lesions. Hepatic steatosis.Cholecystectomy. No biliary duct dilatation. SPLEEN: No splenomegaly. PANCREAS: No focal mass or ductal dilatation. ADRENALS: No nodules. KIDNEYS/URETERS: 2 mm proximal right ureteral calculus with mild righthydronephrosis. No left hydronephrosis PELVIC ORGANS/BLADDER: Bladder is decompressed. 4 cm simple left ovariancyst. Right adnexal structures are normal. Uterus is normal. PERITONEUM / RETROPERITONEUM: No ascites or free air. No retroperitoneallymphadenopathy. VESSELS: Abdominal aorta is normal in size. GI TRACT: No bowel obstruction or wall thickening. Normal appendix. BONES AND SOFT TISSUES: Bones and soft tissues are within normal limits IMPRESSION: 2 mm proximal right ureteral calculus with mild right hydronephrosis. 4 cm simple left ovarian cyst. -------- FINAL REPORT -------- Dictated By: KANU ROBERTS Dictated Date: 02/07/2025 08:15 ET Assigned Physician: KANU ROBERTS Reviewed and Electronically Signed By: KANU ROBERTS Signed Date: 02/07/2025 08:25 ET Workstation ID: [id number] Transcribed By: Self Edit Transcribed Date: 02/07/2025 08:15 ET [address]ina ZAPATA IMG CT PROCEDURES Final Result * POC , urine manually resulted (02/07/2025 5:19 AM EDT) HCG, Ur POC Negative Negative POC hCG Int QC Pass? Yes Yes Urine Urine specimen obtained by clean catch procedure / Unknown 02/07/2025 5:19 AM EDT Neil Dumont MD POINT OF CARE TEST ENTER/EDIT O RDERABLES Final Result * Lipase (02/07/2025 5:14 AM EDT) Lipase 24 13 - 75 unit/L LAB CHEMISTRY METHOD 02/07/2025 5:59 AM EDT [facility] Blood Venous blood specimen / Unknown Venipuncture / Unknown 02/07/2025 5:14 AM EDT 02/07/2025 5:24 AM EDT Neil Dumont MD LAB BLOOD ORDERABLES Final Resu lt [facility] [address] [place] [address], [place] [phone] * Gonorrhea/Chlamydia Screening (08/18/2024) [facility] Gonorrhea/Chla mydia Screening Abstracted Result [facility] Provider HEALTH MAINTENANCE Final Result * Depression Screening (03/03/2024) [facility] Depression Screening Abstracted Result [facility] Provider HEALTH MAINTENANCE Final Result * Lipid panel (02/01/2024) [facility] LDL/HDL Ratio 3 0 - 4 Triglycerides 68 0 - 150 mg/dL Cholesterol 135 0 - 200 mg/dL HDL 44 >=40 mg/dL LDL Cholesterol 78 0 - 100 mg/dL Blood Venous blood specimen / Unknown Result [facility] Nasir MAJOR LAB BLOOD ORDERABLES Mel l Result * Cervical Cancer Screening: HPV (08/25/2023) [facility] Cervical Cancer Screening: HPV No interpretation , Abstracted Result [facility] Historical Provider HEALTH MAINTENANCE Final Result * HIV Screening (01/28/2021) [facility] HIV Screening Abstracted Result [facility] Historical Provider HEALTH MAINTENANCE Final Result * Hepatitis C Screening (04/03/2020) [facility] Hepatitis C Screening Abstracted Historical Provider HEALTH MAINTENANCE Final Result from Last 3 Months or Most Recently Relevant to Health Maintenance Insurance * Guarantor: Nate Ordonez Account Type Relation to Patient Date of Phone Billing Address Personal/Family Self [address] [place] [address] [employer] Care Teams [employer] Stock [employer] Relationship Specialty Start Date End Date Physician, No Pcp PCP - General 12/24/24
--- NOTE | 2025-04-04 13:35 | MHC.OFFVISWM ---
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 [employer] [facility] Allergies adhesive tape Allergy (Verified 04/04/25 13:36) Rash nickel Allergy (Verified 04/04/25 13:36) Rash marijuana (cannabis) Adverse Reaction (Verified 04/04/25 13:36) Vomiting Medication List - Last Reconciled 04/04/25 by Fransico Gallo MD ondansetron 4 mg PO Q8H PRN HPI HPI [employer] [facility]: Details: Start time: 1.30pm, End time: 2.05pm ?I spent 30 minutes speaking with the patient on the phone plus an additional 5 minutes reviewing and updating records for a total of 35 minutes HPI Comments Details: Previous weight loss: Calorie counting, exercise Wakes up: 7am, Sleeps: 12am Breakfast: skips Lunch: 11am (avocado toast, cucumbers) Dinner: 5.30pm (meat, rice, vegetables) Snacks: 9am (banana with peanut butter) Exercise: none, Gym membership Beverages: Coffee: 2/wk, tea: rarely, soda: none, juice: none, ETOH: rarely PFSH Medical History (Updated 04/04/25 @ 13:39 by Fransico Gallo MD) Nausea DJD (degenerative joint disease) Anxiety Depression Morbid obesity Surgical History (Updated 03/19/25 @ 13:40 by Pita Mendiola CMA) Hx of tonsillectomy Hx of section Hx of cholecystectomy Family History (Updated 03/19/25 @ 13:41 by Pita Mendiola CMA) Mother History of PCOS Anxiety Mental health problem Father Obesity Mental health problem Daughter No problems noted. Social History (Updated 03/19/25 @ 13:42 by Pita Mendiola CMA) Alcohol intake: current Alcohol intake frequency: holidays/special occasions only Patient Tobacco Use Status: Never used Tobacco Telehealth Telehealth Telehealth Platform: Telephone Location of provider rendering services: practice address Location of patient: address on file Patient Identification confirmed using: Name, : Yes Telehealth method: voice only Patient verbally consented to treatment: Yes Patient verbally consented to billing insurance company: Yes Patient informed of any privacy concerns related to visit: Yes Minutes spent on Phone/Video with Pt.: 35 Assessment & Plan Assessment & Plan (1) Morbid obesity: Code(s): E66.01 - Morbid (severe) obesity due to excess calories Category: Medical Plan: 1.? Plan for lap sleeve gastrectomy. If diaphragmatic or ventral hernias are present at time of surgery, these will be repaired laparoscopically as well. I emphasized the importance of close follow-up, adherence to instructions and good communication. The surgery does not replace the need to change your lifestlyle which is the cause of the obesity problem. The surgery provides the motivation to try again to change your lifestyle, it reduces the appetite and make the transition to a better lifestyle easier and doubles the amount of weight you would lose compared to doing the lifestyle change without the surgery. You will need to be on a liquid diet with protein shakes for 2 weeks before surgery to maximize weight loss and boost your nutritional status to recover better from surgery and also for the first two weeks after surgery to let the stomach heal before we introduce other foods. After the first 2 weeks we will introduce protein bars and soft foods like scrambled eggs, cottage cheese and yogurt and after the 6th week will introduce meat, fish and cooked vegetables in small amounts. Over time you should be able to eat everything in small amounts. Side effects like nausea, vomiting, heartburn or abdominal pain are not common in the practice unless you are not following in the practice. This operation requires lifetime commitment to following in our practice and communication with me. You will much less weight and experience side effects if you don?t communicate or not following in the practice. Complications are rare and in our practice is about 1/10 of the national average. However, you can develop bleeding that may require transfusion (hasn?t happened for year in the practice), you may from complications (we did not have any deaths in the practice) and infections. Infections are usually a result of breakdown in communication or not understanding or following directions correctly. They are difficult to treat, they can happen during the first 6 weeks, they may require to be in the hospital for weeks or even months, not being able to eat by mouth and you may have drains and surgeries to try and correct the issue. Other risks and complications include possible conversion to an open procedure, leaks, small bowel obstruction, blood clots, cardiac, or pulmonary complications, as remote computer terminal operator complications such as ulcers, insufficient weight loss and vitamin deficiencies. 2. You will receive a link of our software bonnie to generate an individualized nutritional and exercise plan specific for you. Please send me a screenshot of the plans you will generate Meal to include lean meat (beef, fish, pork, turkey, chicken), or iraqi yogurt, or egg whites, or beans with a salad with olive oil and fruits (berries, pears, apples, kiwi). Avoid salt, breads, potatoes, rice, pasta, desserts. ?3. If you choose shakes, each shake would be drunk slowly, like coffee in a period of 2 hours. ?4. If you choose bars, cut each bar in 4 pieces and eat each piece in 30min ?to make each bar last 2 hours. ?5. I emphasized the importance of measuring accurately the food portion and measure it when serving the food in plate ?6. The meal portions include a specific number of forks of meat and salad. You always eat the meat portion but you can replace up to half of salad/vegetables portion with rice, potatoes or pasta, or a fruit ?if you like. The less you do it the better weight loss will be. ?7. One full-size fork is what it can be scooped on the fork without falling aside and not what can be bit with the fork. Use regular forks like those you find in a typical restaurant. ?8.? Please buy the body composition scale we discussed and send me weight measurements as soon as possible and then once a week. Always include your diet and exercise plan. 9. The best choice would be to purchase a stationary bike, elliptical or treadmill at home that can track calories. You can create and exercise plan with the [employer]. ?10.?It is important of avoiding and for at least 18 months postoperatively and has been discussed at the infosession. ?11. Goal is to lose at least 1.5-2lbs per week ?12. Goal to lose 10% of your weight before surgery, which is about 22lbs. Ultimate weight goal: 195lbs before surgery 13. Please follow the diet plan exactly without any change. If you don't like something about the plan or you feel hungry you need to communicate with me so I can help you revise the plan. You should not change the plan yourself. 14. To be scheduled for EGD to assess the stomach's anatomy. The possibility of biopsies was discussed. Patient needs to avoid use of NSAIDs and aspirin for 1 week prior to EGD. You must be on liquids only the day before your endoscopy. Risks of perforation and bleeding was discussed with the patient. This will be an outpatient procedure with IV sedation. Orders: Orders H Pylori Breath Test Today E66.01 - Morbid (severe) obesity due to excess calories Complete Blood Count Auto Diff Today E66.01 - Morbid (severe) obesity due to excess calories IRON PROFILE Today E66.01 - Morbid (severe) obesity due to excess calories Comprehensive Met. Panel Today E66.01 - Morbid (severe) obesity due to excess calories Zinc Today E66.01 - Morbid (severe) obesity due to excess calories Vitamin B1 Today E66.01 - Morbid (severe) obesity due to excess calories US abdomen comp w elastography Today E66.01 - Morbid (severe) obesity due to excess calories XR chest 2V Today E66.01 - Morbid (severe) obesity due to excess calories FL upper GI w air Today E66.01 - Morbid (severe) obesity due to excess calories Insulin Today E66.01 - Morbid (severe) obesity due to excess calories Hemoglobin A1c Today E66.01 - Morbid (severe) obesity due to excess calories Lipid Panel Today E66.01 - Morbid (severe) obesity due to excess calories Vitamin B12 and Folate Today E66.01 - Morbid (severe) obesity due to excess calories C Reactive Protein Today E66.01 - Morbid (severe) obesity due to excess calories Vitamin A Today E66.01 - Morbid (severe) obesity due to excess calories TSH reflex Free T4 Today E66.01 - Morbid (severe) obesity due to excess calories Ferritin Today E66.01 - Morbid (severe) obesity due to excess calories Vitamin D 25-OH Total Today E66.01 - Morbid (severe) obesity due to excess calories ECG 12 lead EKG Today E66.01 - Morbid (severe) obesity due to excess calories Referrals Nutrition/Dietitian Referral E66.01 - Morbid (severe) obesity due to excess calories Behavioral Health Referral E66.01 - Morbid (severe) obesity due to excess calories
[2025-04-04 13:44] VITALS: BMI 41.1
== END 2025-04-04 14:06 | disposition home or self-care (01) ==
LOC: HO.HBS 08:22
PROVIDERS: Visit Provider Surgery
DX: E66.01 Morbid (severe) obesity due to excess calories (principal)
CPT/HCPCS: 99203